=== PATIENT | female | born 1995 ===

== ENCOUNTER 2017-11-27 21:21 | Inpatient (IN) | payer OTHER ==
[~2017-11-27] VITALS: Ht 165.1 cm; Wt 62.1 kg
[~2017-11-27 21:21] MED LIST changes: -NAPROXEN500 MG PO
[2017-11-29] MEDS ORDERED: NAPROXEN500 MG PO (08:55)
== END 2017-11-29 12:52 | DRG 775 ==
LOC: OB/GYN 21:21 → LDR 21:21 → OB/GYN 23:04
PROC: 10E0XZZ Delivery of Products of Conception, External Approach (ICD-10-PCS; principal; 2017-11-27)
PROC: 4A1HXCZ Monitoring of Products of Conception, Cardiac Rate, External Approach (ICD-10-PCS; 2017-11-27)
DX: O60.12X0 Preterm labor second trimester with preterm delivery second trimester, not applicable or unspecified (principal); O41.1220 Chorioamnionitis, second trimester, not applicable or unspecified; Z3A.23 23 weeks gestation of pregnancy; Z37.1 Single stillbirth; B96.29 Other Escherichia coli [E. coli] as the cause of diseases classified elsewhere; B95.2 Enterococcus as the cause of diseases classified elsewhere

== ENCOUNTER → 2017-11-27 | Emergency (ER) | payer OTHER ==
[~2017-11-27] VITALS: Ht 165.1 cm; Wt 62.1 kg
[~2017-11-27] MED LIST: ADVIL100 M1; NAPROXEN500 MG PO
== END | disposition still patient (30) ==
LOC: ER 19:52
DX: O46.8X1 Other antepartum hemorrhage, first trimester (principal)